=== PATIENT | male | born 1985 | race Caucasian/White ===

== ENCOUNTER 2017-03-09 06:22 | Emergency (ER) | payer SELFPAY ==
[~2017-03-09] VITALS: Ht 175.3 cm; Wt 80.7 kg
--- NOTE | 2017-03-09 06:26 | NUR ---
pt [facility], for report possible auditory/visual hallucinations s/p taking cocaine x2 days ago, admits to also drinking beer and liquor. AOx3, afebrile w/ resp even & unlabored, denies any CEDENO, no dizziness, no blurred vision, no sob, lt sided cp reported, NSR, appears anxious. pt paranoia, states "I was somewhere at this place where they had a bunch of escort girls coming in and out and this lurdes found me in my car sleeping, telling me to leave." pt on continuous pulse-ox w/ cardiac monitoring. Pending further scottie mccray MD.
--- NOTE | 2017-03-09 06:36 | NUR ---
Dr. George at bedside for eval.
[2017-03-09] MEDS ORDERED: IV SET PRIMARY 1 EA INFUS.SET MC ONE (06:45)
[2017-03-09] MEDS ORDERED: ASPIRIN 81 MG TAB.CHEW ONE (06:45)
[2017-03-09] MEDS ORDERED: IV NS 0.9% 1,000 ML ONE (06:45)
--- NOTE | 2017-03-09 06:45 | NUR ---
EKG AT BEDSIDE.
--- NOTE | 2017-03-09 06:51 | NUR ---
CXR at bedside.
--- NOTE | 2017-03-09 06:55 | NUR ---
IVHL started, labs drawn & sent. medicated as ordered. On continuous monitoring.
[2017-03-09] MEDS ORDERED: ASPIRIN 81 MG TAB.CHEW PO ONE (07:00)
[2017-03-09] MEDS ORDERED: IV NS 0.9% 1,000 ML BAG IV ONE (07:00)
[2017-03-09 07:01] LABS: BASOPHILS % (AUTO) 0.5 % (0.0-2.0); EOSINOPHILS # (AUTO) 0.1 /CMM (0.0-0.7); HEMATOCRIT 49 % (39-51); HEMOGLOBIN 16.8 g/dL (13.5-17.5); LYMPHOCYTES # (AUTO) 0.9 /CMM (0.8-4.8); LYMPHOCYTES % (AUTO) 15.1 % (20.0-44.0); MEAN CORPUSCULAR HEMOGLOBIN 31 PG (26.0-33.0); MEAN CORPUSCULAR HGB CONC 34 g/dl (31.0-36.0); MEAN CORPUSCULAR VOLUME 90 fL (80-96); MONOCYTES # (AUTO) 0.8 /CMM (0.1-1.30); MONOCYTES % (AUTO) 12.2 % (2.0-12.0); NEUTROPHILS # (AUTO) 4.4 /CMM (1.8-8.9); NEUTROPHILS % (AUTO) 70.2 % (43.0-81.0); PLATELET COUNT (AUTO) 216 /CMM (150-450); RDW COEFFICIENT OF VARIATION 12.6 (11.5-15.0); RED BLOOD CELL COUNT(AUTO) 5.41 MIL/uL (4.5-6.0); WHITE BLOOD COUNT (AUTO) 6.2 K/uL (4.3-11.0)
[2017-03-09 07:13] LABS: CARBON DIOXIDE 29 mmol/L (21-32); CHLORIDE 104 mmol/L (98-107); CREATININE 1.2 mg/dL (0.6-1.3); GFR 72 mL/min (>60); GLUCOSE 95 mg/dL (74-106); POTASSIUM 3.9 mmol/L (3.5-5.1); SODIUM SERUM 140 mmol/L (136-145); UREA NITROGEN, BLOOD 12 mg/dL (7-18)
[2017-03-09 07:19] LABS: INR 1.01 (0.87-1.13); PROTHROMBIN TIME 10.8 SECS (9.5-12.7)
[2017-03-09 07:21] LABS: TROPONIN I < 0.017 ng/mL (0.00-0.056)
--- NOTE | 2017-03-09 07:28 | NUR ---
Report given to ELVER Zuniga for THIERRY.
--- NOTE | 2017-03-09 08:05 | NUR ---
IV removed. Catheter intact and site benign. Pressure and 4x4 applied to site. No bleeding noted.Patient discharged to home in stable condition. Written and verbal after care instructions given. Patient verbalizes understanding of instruction. ambulatory with a steady gait. nad. vs wnl.
[2017-03-09 08:07] VITALS: BP 142/75
== END 2017-03-09 08:08 | disposition home or self-care (01) ==
LOC: ER 06:26
DX: R07.9 Chest pain, unspecified (principal)
CPT/HCPCS: 36415; 71010-TC; 80048-TC; 84484-TC; 85025-TC; 85730-TC; A4606; J7030; Z7610